=== PATIENT | female | born 1990 | race Two or more races ===

== ENCOUNTER → 2017-04-06 | Outpatient (CLI) | payer OTHER ==
[2017-04-06 16:07] LABS: Glucose 94 mg/dL (74-99); Non-African American GFR(MDRD) >60 (>60 ml/min/1.73 sqM)
[2017-04-06 16:19] LABS: CH 31.3; HCT 35.3 % (34.0-46.0); HDW 2.25; HGB 11.7 gm/dL (11.4-16.0); MCH 31.7 pg (25.0-35.0); MCHC 33.3 g/dL (31.0-37.0); MCV 95.4 fL (80.0-100.0); Mean Platelet Volume 7.5; WBC 10.2 k/uL (3.8-10.6)
[2017-04-06 16:32] LABS: Hepatitis B Surface Ag Index 0.07
[2017-04-06 19:18] LABS: Treponemal Ab Non-Reactive (Non-Reactive)
== END | disposition home or self-care (01) ==
LOC: LABWHC1 12:14
PROVIDERS: ATTEND Obstetrics & Gynecology
DX: O26.811 Pregnancy related exhaustion and fatigue, first trimester (principal); Z3A.00 Weeks of gestation of pregnancy not specified
CPT/HCPCS: 36415; 82565; 82947; 85027; 86762; 86780; 86850; 86900; 86901; 87340; 87390

== ENCOUNTER → 2017-04-20 | Outpatient (CLI) | payer OTHER ==
--- NOTE | 2017-04-20 17:53 | US ---
EXAMINATION TYPE: US OB anatomy transabd DATE OF EXAM: 04/20/2017 COMPARISON: NONE HISTORY: 2nd trimester, large for dates, O36.62X0, TECHNIQUE: Transabdominal (TA) EXAM MEASUREMENTS: GESTATIONAL AGE / DATING Physician Established: (19 weeks/1 days) EDC: 09/13/2017 Dates by LMP: (19 weeks/1 days) EDC: 09/13/2017 Dates by First Scan: this is first scan Dates by Current Scan for: (19 weeks/ days) EDC: 09/13/2017 SURVEY IUP: Single PLACENTA: Anterior PREVIA: No previa KAPIL: 14.1 cm Normal CERVICAL LENGTH (transabdominal: norm > 3.0cm): 4.2 cm BIOMETRY PRESENTATION: Breech BPD: 4.3 cm 19 weeks / 1 days HC: 15.3 cm 18 weeks / 3 days AC: 14.0 cm 19 weeks / 3 days FL: 3.0 cm 19 weeks / 2 days ESTIMATED WEIGHT IN GRAMS: 280 grams ESTIMATED WEIGHT IN LBS/OZ: 0 lbs. 10 oz. WEIGHT PERCENTAGE BASED ON ESTABLISHED DATE: 50 % HC/AC: 1.1 Normal FL/AC: 21% Normal HEART RATE: 140 bpm RHYTHM: Normal ANATOMY SEEN (within normal limits): * Lateral Vent (< 1 cm) 0.6 cm * Cisterna Magna (< 1.1 cm) 0.4 cm * Nuchal Fold (< 0.6 cm) 0.2 cm * Cerebellum (varies with age) 1.8 cm Choroid Plexus (bilateral) Midline Falx Cavus Septi Pellucidi Four Chamber Heart Outflow tracts: LVOT/RVOT Stomach Situs Nose / Lips Diaphragm Kidneys (bilateral) Bladder Cord Insert Three Vessel Cord Longitudinal Spine Transverse Spine Arms (bilateral) Legs (bilateral) growth according to dates IMPRESSION: The ultrasound gestational age is 19 weeks 1 day. I see no complicating process.
[2017-04-21 09:50] LABS: Alpha Fetoprotein 96.1 ng/mL; Alpha Fetoprotein (M.O.M) 1.71; B-HCG (M.O.M.) 0.82; Gestational Age (days) 1; Human Chorionic Gonadotropin 19.4 IU/mL; Inhibin A (M.O.M.) 0.52; Interpretation SeeBelow; Maternal Age at EDD (Yrs) 28; Smoker No; Unconjugated Estriol (M.O.M.) 1.39
== END | disposition home or self-care (01) ==
LOC: RADUSWWP 15:31
PROVIDERS: ATTEND Obstetrics & Gynecology
DX: Z34.82 Encounter for supervision of other normal pregnancy, second trimester (principal); Z3A.00 Weeks of gestation of pregnancy not specified
CPT/HCPCS: 36415; 76811; 82105; 82677; 84702; 86336

== ENCOUNTER → 2017-08-11 | Outpatient (CLI) | payer OTHER ==
--- NOTE | 2017-08-11 17:53 | US ---
EXAMINATION TYPE: US OB anatomy transabd DATE OF EXAM: 08/11/2017 COMPARISON: US HISTORY: O36.63X0 Large for dates third trimester; ; TECHNIQUE: Transabdominal (TA) EXAM MEASUREMENTS: GESTATIONAL AGE / DATING Physician Established: (35 weeks/2 days) EDC: 09/13/2017 Dates by LMP: (35 weeks/2 days) EDC: 09/13/2017 Dates by First Scan: (35 weeks/2 days) EDC: 09/13/2017 Dates by Current Scan for: (31 weeks/6 days) EDC: 10/07/2017 SURVEY IUP: Single PLACENTA: Anterior PREVIA: No previa KAPIL: 12.1 cm Normal CERVICAL LENGTH (transabdominal: norm > 3.0cm): 5.8 cm BIOMETRY PRESENTATION: Vertex LIE: Longitudinal BPD: 8.1 cm 32 weeks / 5 days HC: 28.1 cm 30 weeks / 6 days AC: 28.2 cm 32 weeks / 1 day FL: 6.4 cm 33 weeks / 0 days ESTIMATED WEIGHT IN GRAMS: 1954.0 grams ESTIMATED WEIGHT IN LBS/OZ: 4 lbs. 5 oz. WEIGHT PERCENTAGE BASED ON ESTABLISHED DATE: <3 % HC/AC: 1.0 Normal FL/AC: 22.7 Normal HEART RATE: 123 bpm RHYTHM: Normal ANATOMY SEEN (within normal limits): * Lateral Vent (< 1 cm) 0.8 cm Choroid Plexus (bilateral) Midline Falx Cavus Septi Pellucidi Four Chamber Heart Outflow tracts: RVOT Stomach Situs Nose / Lips Diaphragm Kidneys (bilateral) Bladder Cord Insert Three Vessel Cord Longitudinal Spine Transverse Spine Legs (bilateral) ANATOMY NOT SEEN: due to lie and rib shadowing Arms (bilateral) LVOT * Cisterna Magna (< 1.1 cm) * Nuchal Fold (< 0.6 cm) * Cerebellum (varies with age) Single, live, IUP, 31 weeks/6 days, EDC: 10/07/2017, [id number]; EFW is <3.0%. IMPRESSION: No anomalies seen. The weight however is less than 3 percentile and IUGR should be consid ered highly. Follow-up is recommended. No evidence of oligohydramnios.
== END | disposition home or self-care (01) ==
LOC: RADUSWWP 16:18
PROVIDERS: ATTEND Obstetrics & Gynecology
DX: O36.63X0 Maternal care for excessive fetal growth, third trimester, not applicable or unspecified (principal); Z3A.31 31 weeks gestation of pregnancy
CPT/HCPCS: 76811

== ENCOUNTER → 2017-09-01 | Outpatient (CLI) | payer OTHER ==
--- NOTE | 2017-09-01 14:50 | US ---
EXAMINATION TYPE: US OB >= 14 wk fetus DATE OF EXAM: 09/01/2017 COMPARISON: None CLINICAL HISTORY: O36.5930 small for dates S<D TECHNIQUE: Transabdominal (TA) GESTATIONAL AGE / DATING Physician Established: (38 weeks/2 days) EDC: 09/13/2017 Dates by Current Scan: (35 weeks/1 days) EDC: 10/05/2017 SURVEY IUP: Single PLACENTA: Anterior PREVIA: No Previa KAPIL: 16.5 cm Normal CERVICAL LENGTH (transabdominal: norm > 3.0cm): 2.8 cm BIOMETRY PRESENTATION: Vertex LIE: Longitudinal BPD: 8.6 cm 34 weeks / 6 days HC: 30.4 cm 33 weeks / 6 days AC: 31.6 cm 35 weeks / 4 days FL: 7.1 cm 36 weeks / 2 days ESTIMATED WEIGHT IN GRAMS: 2688 grams ESTIMATED WEIGHT IN LBS/OZ: 5 lbs. 15 oz. WEIGHT PERCENTAGE BASED ON ESTABLISHED DATES: 7.4% HC/AC: 1.0 Normal FL/AC: 22.4 Normal HEART RATE: 127 bpm RHYTHM: Normal Live single IUP measuring 35 weeks 1 day which appears small in size according to dates. Shortened c ervix. IMPRESSION: 1. Single live intrauterine with a sonographic age of 35 weeks and 1 day and estimated date of delivery of 10/05/2017. The physician established dates are discordant of 38 weeks and 2 days. Add itionally there is a low weight based on established dates of 7.4%. 2. Cervical length is mildly shortened measuring 2.8 cm.
== END | disposition home or self-care (01) ==
LOC: RADUSWWP 13:38
PROVIDERS: ATTEND Obstetrics & Gynecology
DX: O36.5930 Maternal care for other known or suspected poor fetal growth, third trimester, not applicable or unspecified (principal); Z3A.35 35 weeks gestation of pregnancy
CPT/HCPCS: 76805

== ENCOUNTER 2017-09-10 06:11 | Inpatient (IN) | payer OTHER ==
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
[2017-09-10] MEDS ORDERED: ceFAZolin IN SWFI 2 GM/20 ML SYRINGE IVP ONE (06:18)
[2017-09-10] MEDS ORDERED: LIDOCAINE 1% 20 ML VIAL (10MG/ML) FOR IV START INTRADERMA PRN (06:18)
[2017-09-10] MEDS ORDERED: CITRIC ACID-SODIUM CITRATE 15 ML CUP PO ONE (06:18)
[2017-09-10] MEDS ORDERED: LACTATED RINGERS 1,000 ML IV ONE (06:18)
[2017-09-10] MEDS: LACTATED RINGERS 1,000 ML IV SCH (06:20)
[2017-09-10 06:33] LABS: Basophils % (A) 0 %; Eosinophils # (A) 0.2 k/uL (0-0.7); Eosinophils % (A) 2 %; HCT 38.4 % (34.0-46.0); HGB 12.5 gm/dL (11.4-16.0); Lymphocytes # (A) 1.7 k/uL (1.0-4.8); Lymphocytes % (A) 19 %; MCH 31.4 pg (25.0-35.0); MCHC 32.7 g/dL (31.0-37.0); MCV 96.3 fL (80.0-100.0); Mean Platelet Volume 7.3; Monocytes # (A) 0.5 k/uL (0-1.0); Monocytes % (A) 5 %; Neutrophils # (A) 6.5 k/uL (1.3-7.7); Neutrophils % (A) 73 %; Platelet Count 168 k/uL (150-450); RBC 3.99 m/uL (3.80-5.40); RDW 12.9 % (11.5-15.5); WBC 8.9 k/uL (3.8-10.6)
[2017-09-10 06:40] VITALS: BMI 26.2
[2017-09-10] MEDS ORDERED: OXYTOCIN 10 UNIT/ML 1 ML VIAL ONE (07:48)
[2017-09-10] MEDS ORDERED: PHENYLEPHRINE-0.9% NACL SYG 1 MG/10 ML SYRINGE ONE (07:48)
[2017-09-10] MEDS ORDERED: MORPHINE SULFATE (PF) 0.3 MG/0.3 ML SYR ONE (07:48)
[2017-09-10] MEDS ORDERED: NALBUPHINE 10 MG/ML AMPUL ONE (07:48)
[2017-09-10] MEDS ORDERED: ONDANSETRON 4 MG/2 ML VIAL ONE (07:48)
[2017-09-10] MEDS ORDERED: KETOROLAC 30 MG/ML 1 ML VIAL ONE (07:48)
[2017-09-10] MEDS ORDERED: MORPHINE SULFATE 4 MG/ML SYRINGE IVP PRN (08:19)
[2017-09-10] MEDS ORDERED: ONDANSETRON 4 MG/2 ML VIAL IVP PRN ×2 (08:19→08:44)
[2017-09-10] MEDS ORDERED: diphenhydrAMINE 50 MG/ML 1 ML VIAL IVP PRN ×3 (08:19→08:44)
[2017-09-10] MEDS ORDERED: NALOXONE 0.4 MG/ML 1 ML VIAL IV PRN ×2 (08:19→08:44)
--- NOTE | 2017-09-10 08:35 | P.OP ---
Date of Procedure: 09/10/17 Preoperative Diagnosis: 1. Intrauterine at 39-4/7 weeks. 2. Previous section. Postoperative Diagnosis: Same Procedure(s) Performed: Repeat low transverse section Anesthesia: spinal (Duramorph) Surgeon: Mary Retana Chicken Hatchery Helper #1: Antwon Funez Estimated Blood Loss (ml): 500 Pathology: other (Placenta) Condition: stable Disposition: floor Indications for Procedure: This is a 27-year-old female 4 para 2 at 39-4/7 weeks who presents for scheduled repeat section. I have discussed the risks, benefits, and alternative therapies for the above- mentioned procedure and for both sedation/anesthesia as well as necessary blood products administration, if indicated, as they pertain to this patient. The patient has indicated her understanding and acceptance of the risks and procedures discussed. Operative Findings: A viable female infant is noted in the vertex presentation with scores of 9 at 1 minute and 9 at 5 minutes and infant weight of 6 lbs. 7 oz. Normal uterus tubes and ovaries are noted. Description of Procedure: The patient is taken to the operating room where she is placed in the dorsal supine position with leftward tilt after spinal Duramorph anesthesia is given. She is prepped and draped in the normal sterile fashion. Skin was tested and found to be adequately anesthetized. A Pfannenstiel skin incision was made with a scalpel through the previous laparotomy scar. A second knife was used to carry the incision down to the underlying layer of fascia. The fascia was nicked in the midline with a scalpel and then extended laterally bilaterally with Salazar scissors. The anterior lip of the fascia was grasped with 2 Angela clamps and then dissected off the underlying rectus muscle in the midline with Salazar scissors. The inferior aspect of the fascial incision was grasped with 2 Angela clamps and dissected off the underlying rectus muscle and the midline with Salazar scissors. Next the peritoneum layer was tented up with 2 hemostats and then entered sharply with the scalpel. The incision is extended superiorly and inferiorly with Metzenbaum scissors. Next a DeLee retractor is placed. The vesicouterine peritoneum is entered sharply with Metzenbaum scissors and extended laterally bilaterally with Metzenbaum scissors and then the bladder flap is pushed inferiorly. The lower uterine segment is incised in transverse fashion with the scalpel and then bluntly entered with a hemostat. Clear fluid is noted. The incision was then extended laterally bilaterally with 2 fingers. Next the infant's head is delivered through the incision. Nose and mouth are bulb suctioned. The remainder of the is easily delivered and placed on mother's abdomen. Cord is clamped and cut. Infant is taken to warmer by nursing staff. Uterine fundus is gently massaged and placenta is delivered manually. Uterus is exteriorized and cleared of all clots and debris. Uterine incision is closed with 0 Vicryl suture in a running locked fashion. A second layer of 0 Vicryl suture is used in a running fashion for hemostasis. Adequate hemostasis is noted. Posterior cul-de-sac is suctioned of all clots and debris. Uterus is returned to the abdomen. Incision is noted to be hemostatic. Peritoneal layer is closed with 0 Vicryl suture in a running fashion. Muscle layer is reapproximated with 0 Vicryl suture in interrupted fashion. Fascia layer is then closed with 0 PDS suture with 2 sutures meeting in the midline and the knots buried in either side and in the midline. The subcutaneous tissue was then closed with 2-0 Vicryl suture. Skin layer was then closed with michelle. All sponge and needle counts are correct. The patient is taken to recovery room in stable condition.
[2017-09-10] MEDS ORDERED: KETOROLAC 30 MG/ML 1 ML VIAL IVP PRN (08:44)
[2017-09-10] MEDS ORDERED: SIMETHICONE 80 MG CHEWABLE PO PRN (08:44)
[2017-09-10] MEDS ORDERED: ACETAMINOPHEN TAB 325 MG TAB PO PRN (08:44)
[2017-09-10] MEDS ORDERED: diphenhydrAMINE 25 MG CAP PO PRN (08:44)
[2017-09-10] MEDS ORDERED: METOCLOPRAMIDE 5 MG/ML 2 ML VIAL IVP PRN (08:44)
[2017-09-10] MEDS ORDERED: ZOLPIDEM 5 MG TAB PO PRN (08:44)
[2017-09-10] MEDS ORDERED: MEASLES-MUMPS-RUBELLA VACC/PF 12,500 UNIT/0.5 ML VIAL SQ ONE (08:44)
[2017-09-10] MEDS ORDERED: diphenhydrAMINE 50 MG CAP PO PRN (08:44)
[2017-09-10] MEDS ORDERED: Acetaminophen-Codeine 300-30mg TAB PO PRN ×2 (08:44)
[2017-09-10] MEDS ORDERED: OXYTOCIN 20 UNITS/1000 ML NS 1,000 ML IV SCH (08:44)
[2017-09-10] MEDS ORDERED: LANOLIN CREAM 5 GM TUBE TOPICAL PRN (08:44)
[2017-09-11] MEDS: LACTATED RINGERS 1,000 ML IV SCH ×4 (02:48→02:49)
[2017-09-11] MEDS: SENNOSIDES-DOCUSATE SODIUM 1 EACH TAB PO SCH ×3 (02:48→20:20)
[2017-09-11 09:19] LABS: Basophils % (A) 0 %; Eosinophils # (A) 0.1 k/uL (0-0.7); Eosinophils % (A) 1 %; HCT 33.4 % (34.0-46.0); HGB 10.3 gm/dL (11.4-16.0); Lymphocytes # (A) 1.3 k/uL (1.0-4.8); Lymphocytes % (A) 13 %; MCH 30.8 pg (25.0-35.0); MCHC 30.9 g/dL (31.0-37.0); MCV 99.6 fL (80.0-100.0); Mean Platelet Volume 7.7; Monocytes # (A) 0.6 k/uL (0-1.0); Monocytes % (A) 6 %; Neutrophils # (A) 7.7 k/uL (1.3-7.7); Neutrophils % (A) 79 %; Platelet Count 110 k/uL (150-450); RBC 3.35 m/uL (3.80-5.40); RDW 12.8 % (11.5-15.5); WBC 9.8 k/uL (3.8-10.6)
[2017-09-11] MEDS: IBUPROFEN 600 MG TAB PO PRN ×2 (09:46→20:20)
--- NOTE | 2017-09-11 11:02 | P.PNOBGPC ---
Subjective - Subjective Principal diagnosis: Postop day 1 Interval history: Overall Paulina is doing very well she voices no complaints. She's ablating she has voided and she is tolerating her diet. She has passed flatus. We'll plan to advance diet to regular. Questions are answered for her this morning. She voices no complaints. Vital signs are stable and afebrile. Heart regular, lungs clear, extremities without pain. Patient reports: Reports appetite normal, Reports voiding normally, Reports pain well controlled, Reports ambulating normally [place]: doing well Objective - Vital Signs Latest vital signs: Vital Signs Temp Pulse Resp BP Pulse Ox 09/11/17 08:00 98.6 F 61 18 103/71 99 09/11/17 06:00 18 09/11/17 04:00 98.3 F 58 L 16 116/68 100 09/11/17 02:00 18 09/10/17 23:55 98.3 F 56 L 16 105/63 100 09/10/17 23:54 98.2 F 55 L 18 09/10/17 22:00 98.3 F 56 L 16 106/67 09/10/17 20:00 98.5 F 53 L 16 103/65 09/10/17 17:53 18 09/10/17 16:17 97 09/10/17 16:00 97.8 F 61 18 113/74 09/10/17 13:00 18 09/10/17 12:00 97.3 F L 62 16 103/52 Intake and Output 09/10/17 09/11/17 09/11/17 22:59 06:59 14:59 Intake Total 100 Output Total 1300 900 Balance -1200 -900 Intake: Oral 100 Output: Urine 700 900 Straight 900 Uretheral (Johnson) 700 Emesis 100 Estimated Blood Loss 500 Other: # Voids 0 - Exam Lungs: bilateral: normal Chest: Normal S1, Normal S2 Extremities: Present: normal Abdomen: Present: normal appearance, soft. Absent: distention, tenderness Incision: Present: normal, dry, intact Uterus: Present: normal, firm - Labs Labs: Abnormal Lab Results - Last 24 Hours (Table) 09/11/17 Range/Units 08:44 RBC 3.35 L (3.80-5.40) m/uL Hgb 10.3 L (11.4-16.0) gm/dL Hct 33.4 L (34.0-46.0) % MCHC 30.9 L (31.0-37.0) g/dL Plt Count 110 L (150-450) k/uL
[2017-09-12] MEDS: SENNOSIDES-DOCUSATE SODIUM 1 EACH TAB PO SCH (08:21)
[2017-09-12] MEDS: IBUPROFEN 600 MG TAB PO PRN (08:21)
[2017-09-12 09:07] VITALS: BP 117/69; PULSE 64; RESP 20; TEMP 98.2
--- NOTE | 2017-09-12 09:42 | P.DS ---
Providers Date of admission: 09/10/17 06:11 Expected date of discharge: 09/12/17 Attending physician: Mary Retana Primary care physician: Stated None Hospital Course: Patient is doing very well postop day 2 from a section. She is involuting, voiding and she is tolerating her diet. She voices no complaints. Vital signs are stable and afebrile. Heart regular, lungs clear, extremities without pain. Assessment postop day 2. Plan discharged home follow up with Dr. Lema in 1 week. Prescription for Tylenol 3 and Motrin has been provided and all questions are answered for her prior to her discharge. She is stable for discharge this time. Discharge instructions thoroughly reviewed. Patient Condition at Discharge: Good Plan - Discharge Summary Discharge Rx Participant: No New Discharge Prescriptions: New Acetaminophen-Codeine 300-30mg [Tylenol #3] 1 tab PO Q4H PRN #30 tablet PRN Reason: Pain Ibuprofen [Motrin] 600 mg PO Q6HR PRN #30 tab PRN Reason: Pain No Action Pnv,Calcium 72/Iron/Folic Acid [ Plus Tablet] 1 each PO DAILY Discharge Medication List Pnv,Calcium 72/Iron/Folic Acid [ Plus Tablet] 1 each PO DAILY 01/08/16 [ History] Acetaminophen-Codeine 300-30mg [Tylenol #3] 1 tab PO Q4H PRN #30 tablet [Rx] Ibuprofen [Motrin] 600 mg PO Q6HR PRN #30 tab 09/12/17 [Rx] Follow up Appointment(s)/Referral(s): Mary Retana DO [Doctor of Osteopathic Medicine] - 1 Week Activity/Diet/Wound Care/Special Instructions: No heavy lifting, limit stairs and driving, and pelvic rest. If any high temperatures, heavy bleeding, or severe pain call my office Discharge Disposition: HOME SELF-CARE
--- NOTE | 2017-09-12 12:07 | P.PN ---
Progress Note - Text Date:09/11 Time:2204 Patient is status post . Patient seen this morning with VAS score of 2.no c/o of pruritus, no c/o nausea/vomiting, comfortable and doing well.
== END 2017-09-12 14:46 | disposition home or self-care (01) | DRG 766 ==
LOC: 4FBP 06:11
PROVIDERS: ADMIT Obstetrics & Gynecology; ATTEND Obstetrics & Gynecology
PROC: 10D00Z1 Extraction of Products of Conception, Low, Open Approach (ICD-10-PCS; principal; 2017-09-10 07:47)
DX: O34.211 Maternal care for low transverse scar from previous cesarean delivery (principal); Z37.0 Single live birth; Z3A.39 39 weeks gestation of pregnancy; Z86.2 Personal history of diseases of the blood and blood-forming organs and certain disorders involving the immune mechanism; Z82.49 Family history of ischemic heart disease and other diseases of the circulatory system
CPT/HCPCS: 85025; 86850; 86900; 86901; 88307

== ENCOUNTER → 2019-12-13 | Outpatient (CLI) | payer OTHER ==
--- NOTE | 2019-12-14 08:56 | US ---
EXAMINATION TYPE: US OB anatomy transabd DATE OF EXAM: 12/13/2019 COMPARISON: NONE HISTORY: O36.62X0 Large for date 2nd trimester Anatomy TECHNIQUE: Transabdominal (TA) EXAM MEASUREMENTS: GESTATIONAL AGE / DATING Physician Established: (18 weeks/0 days) EDC: 05/15/2020 Dates by LMP: (18 weeks/0 days) EDC: 05/15/2020 Dates by First Scan: (No previous Dates by Current Scan for: (19 weeks/5 days) EDC: 05/03/2020 SURVEY IUP: Single PLACENTA: Posterior PREVIA: No previa KAPIL: 13.8 cm Normal CERVICAL LENGTH (transabdominal: norm > 3.0cm): 3.9 cm BIOMETRY PRESENTATION: Breech BPD: 4.5 cm 19 weeks / 5 days HC: 16.9 cm 19 weeks / 4 days AC: 15.0 cm 20 weeks / 2 days FL: 3.0 cm 19 weeks / 2 days ESTIMATED WEIGHT IN GRAMS: 311 grams ESTIMATED WEIGHT IN LBS/OZ: 0 lbs. 11 oz. WEIGHT PERCENTAGE BASED ON ESTABLISHED DATE: 98 % HC/AC: 1.1 Normal FL/AC: 20 HEART RATE: 146 bpm RHYTHM: Normal ANATOMY SEEN (within normal limits): * Lateral Vent (< 1 cm) 0.6 cm * Cisterna Magna (< 1.1 cm) 0.3 cm * Nuchal Fold (< 0.6 cm) 0.4 cm * Cerebellum (varies with age) 1.8 cm Choroid Plexus (bilateral) Midline Falx Cavus Septi Pellucidi Four Chamber Heart Outflow tracts: LVOT/RVOT Stomach Situs Nose / Lips Diaphragm Kidneys (bilateral) Bladder Cord Insert Three Vessel Cord Longitudinal Spine Transverse Spine Arms (bilateral) Legs (bilateral) Feet Single live IUP measuring 19 weeks 5 days IMPRESSION: 1. Single intrauterine gestation estimated at 19 weeks 5 days gestation. Cardiac activity measuring 4 6 bpm was observed during the study. Correlate physician established EDC of 8 weeks 0 days. 2. Estimated weight is within the 98th percentile
== END | disposition home or self-care (01) ==
LOC: RADUSWWP 14:48
PROVIDERS: ATTEND Obstetrics & Gynecology
DX: Z3A.19 19 weeks gestation of pregnancy (principal)
CPT/HCPCS: 76811

== ENCOUNTER → 2020-04-02 | Outpatient (CLI) | payer OTHER ==
--- NOTE | 2020-04-02 14:18 | US ---
EXAMINATION TYPE: US OB >= 14 wk fetus DATE OF EXAM: 04/02/2020 COMPARISON: US December 13, 2019. CLINICAL HISTORY: O36.63XO Large for Dates TECHNIQUE: Transabdominal (TA) GESTATIONAL AGE / DATING Physician Established: (33 weeks/6 days) EDC: 05/15/2020 Dates by LMP: (33 weeks/6 days) EDC: 05/15/2020 Dates by First Scan: (35 weeks/4 days) EDC: 05/03/2020 Dates by Current Scan: (34 weeks/1 days) EDC: 05/13/2020 SURVEY IUP: Single PLACENTA: Posterior PREVIA: No Previa KAPIL: 13.2 cm Normal CERVICAL LENGTH (transabdominal: norm > 3.0cm): 3.5 cm BIOMETRY PRESENTATION: Vertex BPD: 8.4 cm 33 weeks / 6 days HC: 30.7 cm 34 weeks / 2 days AC: 30.4 cm 34 weeks / 3 days FL: 6.6 cm 34 weeks / 0 days ESTIMATED WEIGHT IN GRAMS: 2370 grams ESTIMATED WEIGHT IN LBS/OZ: 5 lbs. 4 oz. WEIGHT PERCENTAGE BASED ON ESTABLISHED DATES: 53% HC/AC: 1.01 Normal FL/AC: 22 Normal HEART RATE: 147 bpm RHYTHM: Normal Single live intrauterine gestation is redemonstrated. No cervical thinning. Normal cephalad presentat ion. No placenta previa. Calculated amniotic fluid index within normal limits. biometry measure ments congruent and within normal limits with satisfactory interval growth noted. IMPRESSION: As above.
== END | disposition home or self-care (01) ==
LOC: RADUSWWP 13:26
PROVIDERS: ATTEND Obstetrics & Gynecology
DX: O36.63X0 Maternal care for excessive fetal growth, third trimester, not applicable or unspecified (principal); Z3A.34 34 weeks gestation of pregnancy
CPT/HCPCS: 76805

== ENCOUNTER 2020-04-26 09:57 | Inpatient (IN) | payer OTHER ==
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
[2020-04-26] MEDS ORDERED: LIDOCAINE 1% (10MG/ML) FOR IV START INTRADERMA PRN (10:27)
[2020-04-26] MEDS ORDERED: LACTATED RINGERS 1,000 ML IV ONE (10:27)
[2020-04-26] MEDS ORDERED: CITRIC ACID-SODIUM CITRATE 15 ML CUP PO ONE (10:27)
[2020-04-26 10:52] LABS: Basophils % (A) 0 %; Eosinophils # (A) 0.3 k/uL (0-0.7); Eosinophils % (A) 4 %; HCT 35.4 % (34.0-46.0); HGB 11.7 gm/dL (11.4-16.0); Lymphocytes # (A) 1.2 k/uL (1.0-4.8); Lymphocytes % (A) 18 %; MCHC 33.1 g/dL (31.0-37.0); MCV 93.7 fL (80.0-100.0); Mean Platelet Volume 7.7; Monocytes # (A) 0.3 k/uL (0-1.0); Monocytes % (A) 5 %; Neutrophils % (A) 72 %; Platelet Count 159 k/uL (150-450); RBC 3.78 m/uL (3.80-5.40); RDW 12.9 % (11.5-15.5); WBC 6.9 k/uL (3.8-10.6)
[2020-04-26] MEDS ORDERED: INFLUENZA VACCINE (6 MOS+) 60 MCG/0.5 ML SYRINGE IM ONE (11:04)
[2020-04-26] MEDS ORDERED: KETOROLAC 15 MG/ML 1 ML VIAL ONE (12:07)
[2020-04-26] MEDS ORDERED: NALBUPHINE 10 MG/ML (1 ML AMP) ONE (12:07)
[2020-04-26] MEDS ORDERED: MORPHINE SULFATE (PF) 0.3 MG/0.3 ML SYR ONE (12:07)
[2020-04-26] MEDS ORDERED: OXYTOCIN 10 UNIT/ML 1 ML VIAL ONE (12:07)
[2020-04-26] MEDS ORDERED: ONDANSETRON 4 MG/2 ML VIAL ONE (12:07)
--- NOTE | 2020-04-26 12:57 | P.OP ---
Date of Procedure: 04/26/20 Preoperative Diagnosis: 1. Intrauterine at 39-0/7 weeks. 2. History of previous sections. Postoperative Diagnosis: Same Procedure(s) Performed: Repeat low transverse section Anesthesia: spinal (Duramorph) Surgeon: Mary Retana [employer] Supervisor #1: Thalia Vallejo Estimated Blood Loss (ml): 200 Pathology: none sent Condition: stable Disposition: floor Indications for Procedure: This is a 30-year-old female 5 para 3 at 39-0/7 weeks who presents to labor and delivery for scheduled repeat section. I have discussed the risks, benefits, and alternative therapies for the above- mentioned procedure and for both sedation/anesthesia as well as necessary blood products administration, if indicated, as they pertain to this patient. The patient has indicated her understanding and acceptance of the risks and proced ures discussed. Operative Findings: A viable male infant is noted in the vertex presentation with nuchal cord 1 and scores of 9 at 1 minute and 9 at 5 minutes and infant weight of 6 lbs. 14 oz. Normal uterus tubes and ovaries are noted. Lower uterine segment is thin. Description of Procedure: The patient is taken to the operating room where she is placed in the dorsal supine position with leftward tilt after spinal Duramorph anesthesia is given. She is prepped and draped in the normal sterile fashion. Skin was tested and found to be adequately anesthetized. A Pfannenstiel skin incision was made with a scalpel. A second knife was used to carry the incision down to the underlying layer of fascia. The fascia was nicked in the midline with a scalpel and then extended laterally bilaterally with Salazar scissors. The anterior lip of the fascia was grasped with 2 Angela clamps and then dissected off the underlying rectus muscle in the midline with Salazar scissors. The inferior aspect of the fascial incision was grasped with 2 Angela clamps and dissected off the underlying rectus muscle and the midline with Salazar scissors. Next the peritoneum layer was tented up with 2 hemostats and then entered sharply with the scalpel. The incision is extended superiorly and inferiorly with Metzenbaum scissors. Next a DeLee retractor is placed. The lower uterine segment is fairly thin. The vesicouterine peritoneum is entered sharply with Metzenbaum scissors and extended laterally bilaterally with Metzenbaum scissors and then the bladder flap is pushed inferiorly. The lower uterine segment is incised in transverse fashion with the scalpel and then bluntly entered with a hemostat. Clear fluid is noted. The incision was then extended laterally bilaterally with 2 fingers. Next the infant's head is delivered through the incision. Nose and mouth are bulb suctioned. Nuchal cord 1 is reduced around the 's head. The remainder of the infant is easily delivered and placed on mother's abdomen. Cord is clamped and cut. is taken to warmer by nursing staff. Uterine fundus is gently massaged and placenta is delivered manually. Uterus is exteriorized and cleared of all clots and debris. Uterine incision is closed with 0 Vicryl suture in a running locked fashion. A second layer of 0 Vicryl suture is used in a running fashion for hemostasis. Vesicouterine peritoneum was already fairly high on the lower uterine segment and therefore was not reapproximated. Posterior cul-de-sac is suctioned of all clots and debris. Uterus is returned to the abdomen. Incision is noted to be hemostatic. Peritoneal layer is closed with 0 Vicryl suture in a running fashion. Muscle layer is reapproximated with 0 Vicryl suture in interrupted fashion. Fascia layer is then closed with 0 PDS suture with 2 sutures meeting in the midline and the knots buried in either side and in the midline. The subcutaneous tissue was then closed with 2-0 Vicryl suture. Skin layer was then closed with michelle. All sponge and needle counts are correct. The patient is taken to recovery room in stable condition.
[2020-04-26] MEDS ORDERED: diphenhydrAMINE 50 MG/ML 1 ML VIAL IVP PRN ×2 (12:58)
[2020-04-26] MEDS ORDERED: HYDROcodone/APAP 5-325MG 1 EACH TAB PO PRN (12:58)
[2020-04-26] MEDS ORDERED: NALOXONE 0.4 MG/ML 1 ML VIAL IV PRN (12:58)
[2020-04-26] MEDS ORDERED: HYDROcodone/APAP 7.5-325MG 1 EACH TAB PO PRN (12:58)
[2020-04-26] MEDS ORDERED: METOCLOPRAMIDE 5 MG/ML 2 ML VIAL IVP PRN (12:58)
[2020-04-26] MEDS ORDERED: SIMETHICONE 80 MG CHEWABLE PO PRN (12:58)
[2020-04-26] MEDS ORDERED: diphenhydrAMINE 50 MG CAP PO PRN (12:58)
[2020-04-26] MEDS ORDERED: LANOLIN CREAM 5 GM TUBE TOPICAL PRN (12:58)
[2020-04-26] MEDS ORDERED: ACETAMINOPHEN TAB 325 MG TAB PO PRN (12:58)
[2020-04-26] MEDS ORDERED: ZOLPIDEM 5 MG TAB PO PRN (12:58)
[2020-04-26] MEDS ORDERED: diphenhydrAMINE 25 MG CAP PO PRN (12:58)
[2020-04-26] MEDS ORDERED: ONDANSETRON 4 MG/2 ML VIAL IVP PRN (12:58)
[2020-04-26] MEDS ORDERED: OXYTOCIN 20 UNITS/1000 ML NS 1,000 ML IV SCH (13:00)
[2020-04-26] MEDS: LACTATED RINGERS 1,000 ML IV SCH ×5 (14:10→23:02)
[2020-04-26 20:43] LABS: Glucose,Whole Blood 84 mg/dL (75-99)
[2020-04-26] MEDS: SENNOSIDES-DOCUSATE SODIUM 1 EACH TAB PO SCH (21:22)
[2020-04-27] MEDS: LACTATED RINGERS 1,000 ML IV SCH ×2 (02:53→14:10)
[2020-04-27 07:28] LABS: Basophils % (A) 0 %; Eosinophils # (A) 0.2 k/uL (0-0.7); Eosinophils % (A) 2 %; HCT 32.3 % (34.0-46.0); HGB 10.5 gm/dL (11.4-16.0); Lymphocytes # (A) 1.2 k/uL (1.0-4.8); Lymphocytes % (A) 12 %; MCH 30.3 pg (25.0-35.0); MCHC 32.5 g/dL (31.0-37.0); Mean Platelet Volume 8.4; Monocytes # (A) 0.4 k/uL (0-1.0); Monocytes % (A) 4 %; Neutrophils # (A) 8.2 k/uL (1.3-7.7); Neutrophils % (A) 81 %; Platelet Count 121 k/uL (150-450); RBC 3.47 m/uL (3.80-5.40); RDW 13.2 % (11.5-15.5); WBC 10.1 k/uL (3.8-10.6)
[2020-04-27] MEDS: SENNOSIDES-DOCUSATE SODIUM 1 EACH TAB PO SCH ×2 (08:07→19:51)
[2020-04-27] MEDS: KETOROLAC 15 MG/ML 1 ML VIAL IVP PRN ×2 (08:07→14:32)
--- NOTE | 2020-04-27 08:34 | P.PN ---
Progress Note - Text Progress Note Date: 04/27/20 Anesthesia Postop day 1 Subjective: Status Post section with Duramorph. Patient seen and examined. Doing well without complaint. VAS 2. No current nausea or vomiting. Mild pruritustolerable. Afebrile. Gross lower extremity strength intact. Without apparent anesthetic complications. Objective: Vital signs reviewed Heart: Regular Rate Lungs: Good chest excursion Abdomen: Appears nondistended Assessment: Status post with Duramorph postop day 1 Plan: Continue current care with your medical management. Anticipated change in pain needs as we approached 24-hour artie. This note was dictated using [employer] software. Please be advised there is a potential for misspellings or errors in staff nuclear medicine technologist.
--- NOTE | 2020-04-27 12:08 | P.PNOBGPC ---
Subjective - Subjective Principal diagnosis: Status post repeat section postoperative day #1 Interval history: Patient is doing well. She is feeling much better as far as nausea. She is tolerating liquids. She is passing flatus but no bowel movement yet. Her catheter has been removed approximate 4 hours ago and she still has not been able to urinate yet. She is breast-feeding without difficulty. Her pain is fairly well controlled at this time. Patient reports: Reports appetite normal, Reports pain well controlled, Reports ambulating normally, Denies voiding normally, Denies nauseated [place]: doing well, nursing well Objective - Vital Signs Latest vital signs: Vital Signs Temp Pulse Pulse Resp BP Pulse Ox 04/27/20 08:00 98.3 F 55 L 14 107/72 96 04/27/20 04:00 98.1 F 55 L 14 115/80 97 04/27/20 00:00 97.7 F 56 L 14 115/75 97 04/26/20 20:00 97.5 F L 84 14 114/74 98 04/26/20 16:00 97.6 F 71 16 120/67 97 04/26/20 14:58 96.9 F L 67 16 101/59 98 04/26/20 14:27 96.6 F L 60 16 104/62 99 04/26/20 13:58 62 16 116/69 98 04/26/20 13:43 66 16 105/64 99 04/26/20 13:28 85 16 113/60 99 04/26/20 13:12 96.4 F L 66 16 103/63 99 04/26/20 12:58 96.8 F L 71 16 102/60 94 L Intake and Output 04/26/20 04/27/20 04/27/20 22:59 06:59 14:59 Intake Total 30 Output Total 300 1200 600 Balance -270 -1200 -600 Intake: Oral 30 Output: Urine 300 1200 600 Other: Voiding Method Indwelling Catheter - Exam Extremities: Present: normal. Absent: tenderness, edema Abdomen: Present: normal appearance, soft. Absent: distention Incision: Present: normal, dry, intact. Absent: erythematous Uterus: Present: normal, firm. Absent: tenderness - Labs Labs: Abnormal Lab Results - Last 24 Hours (Table) 04/27/20 Range/Units 06:58 RBC 3.47 L (3.80-5.40) m/uL Hgb 10.5 L (11.4-16.0) gm/dL Hct 32.3 L (34.0-46.0) % Plt Count 121 L (150-450) k/uL Neutrophils # 8.2 H (1.3-7.7) k/uL Assessment and Plan Assessment: Status post repeat section postoperative day #1 (1) 39 weeks gestation of Current Visit: No Status: Acute Code(s): Z3A.39 - 39 WEEKS GESTATION OF SNOMED Code(s): 56044658 (2) Previous delivery affecting Current Visit: No Status: Acute Code(s): O34.21 - MATERNAL CARE FOR SCAR FROM PREVIOUS * DO NOT USE * SNOMED Code(s): 953900814 Plan: Patient is encouraged to ambulate. She is advised to notify her nurse if she is unable to urinate in the next 2 hours. Will switch to oral pain medication today. May shower if desired.
[2020-04-27 14:18] VITALS: RESP 16
[2020-04-27] MEDS: IBUPROFEN 600 MG TAB PO PRN (22:18)
[2020-04-28] MEDS: IBUPROFEN 600 MG TAB PO PRN (07:54)
[2020-04-28 08:11] VITALS: BP 120/66; PULSE 62; TEMP 98.2
[2020-04-28] MEDS: SENNOSIDES-DOCUSATE SODIUM 1 EACH TAB PO SCH (08:15)
--- NOTE | 2020-04-28 11:01 | P.DS ---
Providers Date of admission: 04/26/20 09:57 Expected date of discharge: 04/28/20 Attending physician: Mary Retana Primary care physician: Stated None - Discharge Diagnosis(es) (1) 39 weeks gestation of Current Visit: No Status: Acute (2) Previous delivery affecting Current Visit: No Status: Acute Hospital Course: This is a 30-year-old female 5 para 3 at 39-0/7 weeks who presented for scheduled repeat section. She underwent a repeat low transverse section under spinal Duramorph anesthesia and delivered a viable male infant with scores of 9 at 1 minute and 9 at 5 minutes and weight of 6 lbs. 14 oz. Her postoperative course has been essentially uncomplicated. She did have some nausea issues on the first postop night. She is tolerating regular diet and has had flatus and bowel movement. Pain is well-controlled with ibuprofen. She is breast-feeding. Lochia is decreasing. She is breast- feeding. Vital signs are stable. Abdomen is soft with fundus firm and nontender. Incision is clean dry and intact with michelle in place. Bowel sounds are present 4. Extremities show negative Homans. Impression is status post repeat section postoperative day #2. Plan is to discharge home today. Routine postoperative and instructions are given. She is advised follow-up in the office in 1 week for postoperative check and in 6 weeks for a check. She is advised to call the office if she has any further questions or concerns prior to her appointment time. Procedures: Repeat low transverse section on 04/26/2020 Patient Condition at Discharge: Stable Plan - Discharge Summary New Discharge Prescriptions: New Ibuprofen [Motrin] 600 mg PO Q6HR PRN #60 tab PRN Reason: Mild Pain Or Fever >= 100.5 Continue Pnv,Calcium 72/Iron/Folic Acid [ Plus Tablet] 1 each PO DAILY Discharge Medication List Pnv,Calcium 72/Iron/Folic Acid [ Plus Tablet] 1 each PO DAILY 01/08/16 [History] Ibuprofen [Motrin] 600 mg PO Q6HR PRN #60 tab 04/28/20 [Rx] Follow up Appointment(s)/Referral(s): Mary Retana DO [Doctor of Osteopathic Medicine] - 1 Week Activity/Diet/Wound Care/Special Instructions: Instructions 1. Do not begin any exercise program for 3 weeks. 2. Do not resume sexual relations for 3 weeks or longer if uncomfortable. 3. You may take tub baths or showers at any time. 4. You may use tampons if desired after 3 weeks. 5. Keep the area of episiotomy (stitches) clean and dry. 6. If you are not nursing, wear a good fitting, supportive bra during the day and limit fluid intake for at least 1 week to prevent breast engorgement. 7. Call the office, [phone], within the next week to make appointment for your 6 week checkup if it has not already been made. 8. Report any of the following occurrences to the doctor promptly: a. Heavy, excessive bleeding b. Chills, fever c. Burning or frequency of urination d. Pain or redness and breasts if nursing e. Increasing pain or swelling in episiotomy (stitches). In addition to the above instructions, the following additional should be followed: 1. No heavy lifting or straining (exercising) until after 6 week checkup. 2. Keep abdominal incision clean and dry: You may wear a dressing if more comfortable. 3. Make office appointment for 10 days after going home or as instructed by her doctor. Discharge Disposition: HOME SELF-CARE
== END 2020-04-28 13:18 | disposition home or self-care (01) | DRG 788 ==
LOC: 4FBP 09:57
PROVIDERS: ADMIT Obstetrics & Gynecology; ATTEND Obstetrics & Gynecology
PROC: 10D00Z1 Extraction of Products of Conception, Low, Open Approach (ICD-10-PCS; principal; 2020-04-26 12:00)
DX: O34.211 Maternal care for low transverse scar from previous cesarean delivery (principal); O69.81X0 Labor and delivery complicated by cord around neck, without compression, not applicable or unspecified; L29.9 Pruritus, unspecified; O99.73 Diseases of the skin and subcutaneous tissue complicating the puerperium; Z37.0 Single live birth; Z3A.39 39 weeks gestation of pregnancy; Z82.49 Family history of ischemic heart disease and other diseases of the circulatory system; Z86.2 Personal history of diseases of the blood and blood-forming organs and certain disorders involving the immune mechanism; Z83.438 Family history of other disorder of lipoprotein metabolism and other lipidemia
CPT/HCPCS: 85025; 86850; 86900; 86901; 90686